=== PATIENT | female | born 1985 | race Caucasian/White ===

== ENCOUNTER → 2016-07-12 | Outpatient (CLI) | payer BC ==
[2016-07-12 12:42] LABS: URINE APPEARANCE CLEAR (CLEAR); URINE BILIRUBIN NEG (NEG); URINE COLOR YELLOW; URINE NITRITE NEG (NEG); URINE PH 5.5 (4.5-7.5); URINE SPECIFIC GRAVITY 1.003 (1.000-1.030); UROBILINOGEN NEG (NEG)
[2016-07-12 12:51] LABS: MANUAL MICROSCOPIC REQUIRED? NO; REVIEW REQ? NO
== END | disposition home or self-care (01) ==
LOC: C.LAB1850 11:28
PROVIDERS: ATTEND Obstetrics & Gynecology
DX: R39.9 Unspecified symptoms and signs involving the genitourinary system (principal)

== ENCOUNTER → 2016-11-20 | Outpatient (CLI) | payer BC ==
[2016-11-20 13:16] LABS: HEMATOCRIT 40.6 % (37-47); MEAN CELL VOLUME 93.5 fL (80-100); MEAN CORPUSCULAR HEMOGLOBIN 31.8 pg (25-34); MEAN PLATELET VOLUME 10.9 fL (7.4-10.4); PLATELET COUNT 189 K/uL (130-400); RED BLOOD COUNT 4.34 M/uL (4.2-5.4); WHITE BLOOD COUNT 7.75 K/uL (4.8-10.8)
[2016-11-20 13:35] LABS: ALT/SGPT 20 U/L (12-78); BLOOD UREA NITROGEN 10 mg/dl (7-18); BUN/CREATININE RATIO 12.7 (10-20); CARBON DIOXIDE 23 mmol/L (21-32); CHLORIDE 108 mmol/L (98-107); CHOLESTEROL 178 mg/dl (0-200); CREATININE 0.82 mg/dl (0.60-1.20); GLUCOSE 80 mg/dl (70-99); MAGNESIUM 2.1 mg/dl (1.8-2.4); POTASSIUM 3.7 mmol/L (3.5-5.1); SODIUM 142 mmol/L (136-145); TRIGLYCERIDES 159 mg/dl (0-150); VERY LOW DENSITY LIPOPROT CALC 32 mg/dl
[2016-11-20 13:38] LABS: CALCIUM 8.8 mg/dl (8.5-10.1)
[2016-11-20 13:44] LABS: ALKALINE PHOSPHATASE 51 U/L (45-117); AST/SGOT 13 U/L (15-37); CHOLESTEROL/HDL RATIO 3.8; HDL CHOLESTEROL 47 mg/dl; LDL CHOLESTEROL CALCULATED 99 mg/dl
== END | disposition home or self-care (01) ==
LOC: C.LABBC 11:38
PROVIDERS: ATTEND Nurse Practitioner Adult Health
DX: E78.5 Hyperlipidemia, unspecified (principal); R00.2 Palpitations

== ENCOUNTER 2018-10-06 08:26 | Inpatient (IN) ==
[2018-10-06] MEDS ORDERED: LACTATED RINGER'S 1,000 ML IV PRN (08:35)
[2018-10-06] MEDS ORDERED: OXYTOCIN 30 UNITS/500 ML BAG IV PRN ×2 (08:35→11:07)
[2018-10-06] MEDS ORDERED: PENICILLIN G POTASSIUM 3 MU in DEXTROSE 5% 100 ML IV PRN (08:35)
[2018-10-06] MEDS ORDERED: PENICILLIN G POTASSIUM 6 MU in DEXTROSE 5% 250 ML IV STA (08:43)
[2018-10-06] MEDS ORDERED: LACTATED RINGER'S 1,000 ML IV SCH (08:45)
--- NOTE | 2018-10-06 08:49 | History & Physical Report ---
Date of Service October 06, 2018 Assessment & Plan (1) SROM (spontaneous rupture of membranes): Pt is a 33yo with SROM at 37.0 weeks. GBS + -Pitocin, fluids, Penicillin G, NPO -Anticipate History of Present Illness Chief Complaint: SROM Primary Care Provider: LIBAN Mondragon Ms. Hutchinson is a 33yo presenting with SROM at 37.0 weeks. Pt has an PA of October 27, 2018 confirmed by 1st trimester US and LMP. course unremarkable. Pt with history of palpitations with negative Holter workup, and high cholesterol. Blood type O-. Received RhoGam 08/04/18. Antibody negative, rubella immune. Hep B NEG, HIV NEG. Normal cell free DNA testing and MSAFP. NEG 1 hour glucose test x2. 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 Beliefs That Will Affect Care: None marital status: Current Living Situation: Spouse Feels Safe at Home: Yes Safety Concerns: Feels Safe At This Time Smoking Status: Never smoker Hx Alcohol Use: No Hx Substance Use: No Physical Exam Genitourinary: OB Exam Abdomen: + vertex Manual OB Exam: + cervical dilation 8 cm, + cervical effacement 90% and + station 0 Results & Data Vital Signs (Past 12 Hours) Vital Signs Pulse BP 10/06/18 08:31 100 H 129/82 Laboratory Results Laboratory Results - last 24 hr 10/06/18 08:48 WBC 13.64 H RBC 4.20 Hgb 13.9 Hct 40.1 MCV 95.5 MCH 33.1 RDW Std Deviation 49.3 H RDW Coeff of Sai 14.3 Plt Count 127 L MPV 11.3 H Medications Administered Home Medications PNV cmb#95-ferrous fumarate-FA [] 1 tab PO DAILY 10/06/18 [History Confirmed 10/06/18] Active Medications Lactated Ringer's (Lr) 1,000 mls @ 999 mls/hr IV .Q1H1M PRN PRN Reason: (Pre-Anesthesia) Stop: 11/05/18 08:34 Lactated Ringer's (Lr) 1,000 mls @ 125 mls/hr IV .Q8H BERNARDINO Stop: 10/08/18 08:44 Oxytocin (Pitocin) 30 units in 500 mls @ 333.333 mls/hr IV .Q1H30M PRN; Protocol PRN Reason: Bleeding Control Stop: 11/05/18 08:34 Penicillin G Potassium 6 mu/ (Dextrose) 262 mls @ 262 mls/hr IV NOW STA Stop: 10/06/18 09:42 Last Admin: 10/06/18 09:00 Dose: 262 mls/hr Documented by: Penicillin G Potassium 3 mu/ (Dextrose) 106 mls @ 100 mls/hr IV Q4H PRN PRN Reason: Give until delivery Stop: 10/16/18 08:34 Supervising Physician Co-Signing Physician Notes Resident Physician Supervision Note: I interviewed and examined the patient. Discussed with Dr. Mara Lamar MD and agree with findings and plan as documented in the note. Any exceptions or clarifications are listed here: [None] Documented By: Halle Conway MD, FACOG
[2018-10-06 08:55] LABS: Hematocrit (blood only) 40.1 % (37-47); Hemoglobin 13.9 g/dL (12.0-16.0); Mean Corpuscular Volume 95.5 fL (80-100); Mean Platelet Volume 11.3 fL (7.4-10.4); Platelet Count 127 K/uL (130-400); RDW Coefficient of Variation 14.3 % (11.5-14.5); RDW Standard Deviation 49.3 fL (36.4-46.3); White Blood Count 13.64 K/uL (4.8-10.8)
[2018-10-06 09:29] LABS: Mean Corpuscular Hgb Conc 34.7 g/dL (32-36)
[2018-10-06] MEDS ORDERED: BENZOCAINE 20% AER SPR 82.5 GM CAN EXT PRN (11:07)
[2018-10-06] MEDS ORDERED: ACETAMINOPHEN 325 MG TAB PO PRN (11:07)
[2018-10-06] MEDS ORDERED: DIPHTHERIA/TETANUS/PERTUSSIS 0.5 ML SYR/VIAL IM ONE (11:07)
[2018-10-06] MEDS ORDERED: HYDROCORTISONE ACETATE 25 MG SUPP PR PRN (11:07)
[2018-10-06] MEDS ORDERED: BISACODYL 10 MG SUPP PR PRN (11:07)
[2018-10-06] MEDS ORDERED: SUPERCREAM 0.870% 15 GM JAR EXT PRN (11:07)
[2018-10-06] MEDS ORDERED: OXYCODONE/ACETAMINOPHEN 5mg/325mg TAB PO PRN (11:07)
--- NOTE | 2018-10-06 15:25 | Delivery Summary ---
DATE OF OPERATION: 10/06/2018 The patient is a 33-year-old 2, para 0 who presented with spontaneous rupture of membranes of clear fluid at approximately 0500 hours this morning. She presented to labor and delivery at 8 cm dilated with grossly ruptured membranes for clear fluid. She requested an unmedicated . She progressed to full dilation and in the knee-chest position, delivered the vertex over an intact perineum. A loose nuchal cord was reduced prior to delivering the rest of the . The shoulders were delivered, the anterior shoulder first and then the posterior shoulder. Rest of the was delivered easily and after waiting 30 seconds after cord had stopped pulsing, the cord was clamped and cut. The mother was then placed in the semi-Alvarez position and the was placed on her chest for further drying and attention. The placenta was then expressed intact with a 3-vessel cord. A first-degree right labial laceration was bleeding and after injecting the area with 1% lidocaine, the defect was closed in the usual fashion with 3-0 chromic. There was a small abrasion on the left labia that was not bleeding, was not repaired. Estimated blood loss was 250 mL. Mother and infant were doing well after delivery. I attest to the content of the Intraoperative Record and any orders documented therein. Any exception s are noted below.
[2018-10-06] MEDS: DOCUSATE SODIUM 100 MG CAP PO SCH (20:52)
[2018-10-06] MEDS: IBUPROFEN 600 MG TAB PO PRN (23:14)
[2018-10-07 06:52] LABS: Hemoglobin 12.9 g/dL (12.0-16.0); Mean Corpuscular Hgb Conc 33.9 g/dL (32-36); Mean Corpuscular Volume 95.5 fL (80-100); Mean Platelet Volume 11.2 fL (7.4-10.4); Platelet Count 137 K/uL (130-400); RDW Coefficient of Variation 14.3 % (11.5-14.5); RDW Standard Deviation 49.5 fL (36.4-46.3); Red Blood Count 3.98 M/uL (4.2-5.4); White Blood Count 15.09 K/uL (4.8-10.8)
--- NOTE | 2018-10-07 08:00 | Obstetrical Progress Note ---
Date of Service October 07, 2018 day #1 from vaginal delivery the patient is doing well ambulating tolerating oral diet she has no extremity pain minimal bleeding questions Assessment & Plan (1) SROM (spontaneous rupture of membranes): Continue current care Physical Exam Vital Signs (Past 24 Hours) Last Vital Signs Temp 98.2 F 10/07/18 07:30 Pulse 89 10/07/18 07:30 Resp 18 10/07/18 07:30 BP 98/59 L 10/07/18 07:30 Pulse Ox 97 10/06/18 15:15 Vital signs are stable she is afebrile abdomen is soft nontender extremity exam negative
[2018-10-07] MEDS: IBUPROFEN 600 MG TAB PO PRN ×2 (09:05→19:29)
[2018-10-07] MEDS: PRENATAL VITAMIN 1 TAB PO SCH (09:07)
[2018-10-07] MEDS: DOCUSATE SODIUM 100 MG CAP PO SCH ×2 (09:07→19:30)
[2018-10-07] MEDS ORDERED: BISACODYL 5 MG TABEC PO SCH (20:00)
[2018-10-08] MEDS: IBUPROFEN 600 MG TAB PO PRN ×4 (00:02→13:00)
[2018-10-08 07:22] LABS: Hematocrit (blood only) 36.3 % (37-47); Hemoglobin 11.9 g/dL (12.0-16.0)
--- NOTE | 2018-10-08 08:00 | Obstetrical Progress Note ---
Date of Service October 08, 2018 Assessment & Plan (1) care following vaginal delivery: stable continue to work on latch & positions discharge to home follow up in 6 weeks. Present on Admission?: No Day #:: 2 Subjective Ambulation: ambulating normally Voiding: no voiding problems Passing Gas:: Yes Diet Tolerance:: regular diet Lochia:: Small Feeding Type:: breast feeding Current Pain Level(1-10): 1 (nipple pain with nursing) Review of Systems All systems reviewed & are unremarkable except as noted in HPI & below Physical Exam Vital Signs (Past 24 Hours) Last Vital Signs Temp 97.7 F 10/07/18 23:30 Pulse 83 10/07/18 23:30 Resp 20 10/07/18 23:30 BP 118/82 10/07/18 19:35 Pulse Ox 96 10/07/18 23:30 Constitutional WD/WN, vitals as above Gastrointestinal (Abdomen) Inspection/Auscultation: abdomen normal to inspection Musculoskeletal no calf tendereness Genitourinary OB Exam Abdomen: + fundal height Fundus: + firm and + relation to umbilicus (3 below U)
[2018-10-08] MEDS: PRENATAL VITAMIN 1 TAB PO SCH (08:41)
[2018-10-08] MEDS: DOCUSATE SODIUM 100 MG CAP PO SCH (08:41)
--- OUTSIDE RECORDS SUMMARY | 2018-10-09 21:54 | External Medical Summary | Continuity of Care Document ---
:1985 Author Name Saul Kothari, Provider Address Unavailable Unavailable , Care Team Providers Name Role Phone Rebeka Headley [email or web address] Janelle Sol Unavailable Unavailable Unavailable Unavailable Unavailable Problems Anxiety (300.00) (F41.9) Hyperlipidemia (272.4) (E78.5) Need for rhogam due to Rh negative mother (V07.2) (Z29.13) Encounter for antepartum consultation regarding (V 65.49) (Z71.89) Supervision of normal first in third trimester (V2 2.0) (Z34.03) GBS (group B Streptococcus carrier), +RV culture, currently (V23.89) (O99.820) Allergies and Adverse Reactions No Known Drug Allergies (Allergy) Medications TABS Refills: 0 Procedures History of Oral Surgery Tooth Extraction Status: Completed Immunizations Fluzone Quadrivalent 0.5 ML Intramuscular Suspension P refilled Syringe On: 13-Mar-2018 10:28 Lot #: [id number], SANOFI PASTEUR Tdap (Adacel) On: 28-Jul-2018 15:24 Lot #: [id number], SANOFI PASTEUR Family History natural daughter Family history of Dyslipidemia (272.4) (E78.5) Status: Activ e Grandmother Family history of Dyslipidemia (272.4) (E78.5) Status: Activ e Family history of hypertension (V17.49) (Z82.49) Status: Act heydi Family history of Twins (V27.9) (Z38.5) Status: Active Father Family history of hypertension (V17.49) (Z82.49) Status: Act heydi Mother Family history of depression (V17.0) (Z81.8) Status: Active Family history of anxiety disorder (V17.0) (Z81.8) Status: A ctive Grandmother Family history of ovarian cancer (V16.41) (Z80.41) Status: A ctive Grandfather Family history of colon cancer (V16.0) (Z80.0) Status: Activ e Social History - Smoking Status Never smoker Never smoker Plan of Treatment Planned Encounters Appointment; Rebeka Headley M.D. Start: 18-May-2019 14:20 Req uest Planned Observations Planned Goals not documented Results Group B Strep/ALEXANDRE 29-Sep-2018 18:04 GRP B BETA STREP CULTURE - ALEXANDRE ORDERED P ROCEDURE : GRP B Beta Strep Culture -ALEXANDRE; Speciment : V aginal/Rectal Source of Specimen: Vaginal/ Rectal Group B St rep Culture : Group B Beta Strep GROUP B BETA STREP\S\Group B Beta Strep Posit heydi for Group B Beta Strep S\S\Sens No Sensitivities to Follow Vital Signs 29-Sep-2018 15:59 Systolic 118 mm[Hg] Diastolic 76 mm[Hg] Weight 149.2 lb Height 67.5 in BMI Calculated 23.02 kg/m2 BSA Calculated 1.79 m2 14-Sep-2018 13:58 Systolic 126 mm[Hg] Diastolic 74 mm[Hg] Weight 145.6 lb Height 67.5 in BMI Calculated 22.47 kg/m2 BSA Calculated 1.78 m2 Encounters Appointment; Katharine Christianson DO 29-Sep-2018 15:20 Encounter Diagnosis: Problem not documented Appointment; Bereket Le M.D. 14-Sep-2018 13:50 Encounter Diagnosis: Problem not documented Appointment; Jarocho Segovia M.D. 01-Sep-2018 15:50 Encounter Diagnosis: Problem not documented Appointment; Roslyn Conley M.D. 18-Aug-2018 14:30 Encounter Diagnosis: Problem not documented Appointment; Kae Dixon M.D. 28-Jul-2018 15:10 Encounter Diagnosis: Problem not documented Appointment; Katharine Christianson DO 30-Jun-2018 13:30 Encounter Diagnosis: Problem not documented Appointment; Stephen Batista M.D. 02-Jun-2018 13:20 Encounter Diagnosis: Problem not documented Appointment; CHRISTINE SC2, Ultrasound 02-Jun-2018 12:30 Encounter Diagnosis: Problem not documented Appointment; Anna Chamberlain CRNP 09-May-2018 8:40 Encounter Diagnosis: Problem not documented Appointment; Roslyn Conley M.D. 08-May-2018 14:00 Encounter Diagnosis: Problem not documented Appointment; Gonzalez Perez DO 17-Apr-2018 16:20 Encounter Diagnosis: Problem not documented Appointment; Stephen Batista M.D. 10-Apr-2018 14:30 Encounter Diagnosis: Problem not documented Appointment; OB SC1, Procedure Rm 13-Mar-2018 9:50 Encounter Diagnosis: Problem not documented Appointment; Roslyn Conley M.D. 13-Mar-2018 9:50 Encounter Diagnosis: Problem not documented Appointment; OB SC1, Nursing Station 10-Mar-2018 10:45 Encounter Diagnosis: Problem not documented Appointment; Janet Barton M.D. 16-Feb-2018 8:00 Encounter Diagnosis: Problem not documented Appointment; Cristina Araujo PA-C 16-May-2017 14:40 Encounter Diagnosis: Problem not documented Appointment; Roslyn Conley M.D. 11-Mar-2017 8:45 Encounter Diagnosis: Problem not documented Appointment; Rebeka Headley M.D. 18-May-2019 14:20 Encounter Diagnosis: Problem not documented
== END 2018-10-08 17:40 | disposition home or self-care (01) | DRG 807 ==
LOC: OPB 08:26 → 4S1 08:27 → 4S2 14:15

== ENCOUNTER 2021-03-17 02:28 | Inpatient (IN) ==
[2021-03-17] MEDS ORDERED: OXYTOCIN 30 UNITS/500 ML BAG IV PRN ×2 (03:14→06:24)
[2021-03-17] MEDS ORDERED: LACTATED RINGER'S 1,000 ML IV PRN (03:14)
[2021-03-17] MEDS ORDERED: PENICILLIN G POTASSIUM 6 MU in DEXTROSE 5% 250 ML IV STA (03:14)
--- NOTE | 2021-03-17 03:39 | History & Physical Report ---
Date of Service March 17, 2021 Assessment & Plan (1) Encounter for supervision of normal in multigravida, antepartum: Plan: In labor, admit to L&D. EFM/toco, IV, labs, COVID swab per protocol. Reviewed plan with patient. Penicillin for GBS+. History of Present Illness Chief Complaint: labor Primary Care Provider: Rebeka Headley MD 35yo @ 38 0/7, spontaneous rupture of clear fluid, reg ctx. + movement, no vaginal bleeding. complicated by Rh negative (rec'd Rhogam), GBS positive. Allergies Allergy/AdvReac Type Severity Reaction Status Date / Time No Known Drug Allergies Allergy Verified 03/12/21 10:25 Home Medications Medication Instructions Recorded Confirmed Type prenat.vits,maximo,izz-qyxz-dirgt 1 tab PO DAILY 08/13/20 03/12/21 History Patient History Medical History Anxiety no current meds Supervision of normal first in third trimester Surgical History [place] teeth removed Family History Grandfather (Maternal) Colorectal cancer Grandmother (Maternal) Ovarian cancer Denies family history of Prostate cancer Myocardial infarction Breast cancer Social History Smoking Status: Never smoker Second Hand Exposure: No; Do You Dip or Chew Tobacco: No; Tobacco Cessation Education Requested by Patient: No Hx Alcohol Use: No Hx Substance Use: No Preferred Language: Azeri Communication Ability: Effective Visual Impairment: No Limitations Hearing Ability: Normal Garage Door Hanger Required: No Beliefs That Will Affect Care: None marital status: marital status details: Shiv [phone] Current Living Situation: Spouse and Family Current Living Situation Comment: Lives with and daughter current occupational status: employed current occupation: professor at [employer] Other Information That Helps Us Care for You: No Feels Safe at Home: Yes Safety Concerns: Feels Safe At This Time Childhood Exposure to Second-Hand Smoke: No Dental Care, Regularly: Yes Physical Activity Frequency: 1-2 Times per Week Seatbelt Use: always Sunscreen Use: Yes Assistive Devices: None Review of Systems All systems reviewed & are unremarkable except as noted in HPI & below Physical Exam Constitutional: WD/WN, vitals as above Respiratory: normal respiratory effort, lungs clear to auscultation no respiratory distress Cardiovascular: Rate/Rhythm: regular rate and regular rhythm Gastrointestinal (Abdomen): Inspection/Auscultation: abdomen normal to inspection Percussion/Palpation: abdomen soft; abdomen nontender Gravid. No s/s chorio or abruption. Skin: no rashes, warm and dry Psychiatric: A+Ox3, euthymic affect Results & Data ([facility]) Vital Signs (Past 12 Hours) Vital Signs Pulse Resp BP 03/17/21 02:50 83 139/87 03/17/21 02:48 83 18 139/87 Monitoring External Monitor FHT cat 1 [place] Q 2 SVE 5cm per RN Coding Level of Care Code None Diagnoses Encounter for supervision of normal in multigravida, antepartum Z34.80
[2021-03-17 03:47] LABS: Hematocrit (blood only) 38.2 % (37-47); Hemoglobin 12.6 g/dL (12.0-16.0); Mean Corpuscular Hemoglobin 31.4 pg (25-34); Mean Corpuscular Volume 95.3 fL (80-100); Mean Platelet Volume 11.2 fL (7.4-10.4); Platelet Count 149 K/uL (130-400); RDW Coefficient of Variation 14.8 % (11.5-14.5); RDW Standard Deviation 51.5 fL (36.4-46.3); Red Blood Count 4.01 M/uL (4.2-5.4); White Blood Count 10.99 K/uL (4.8-10.8)
--- NOTE | 2021-03-17 05:57 | Delivery Summary ---
Vaginal Delivery Summary Date of Service March 17, [address] [facility] Vaginal Delivery Summary: Pre-delivery diagnoses: 35yo @ 38 0/7, spontaneous labor, GBS+, Rh neg Post-delivery diagnoses: same Procedure: spontaneous vaginal delivery Surgeon: Katharine Christianson DO Complications: none Findings: Viable female . Apgars: 9 at 5 minutes. Weight pending, please see nursery records. Estimated blood loss: 200ml Description of delivery: The patient had progressed to complete without anesthesia and began to feel sudden urge to push while in the bathroom, then was brought over to the bed, and felt the baby begin to deliver while standing on the side of the bed. This all happened quickly - and nursing staff called me to bedside, and I immediately responded, and baby was already delivered at the time I entered the room. Patient was standing at the side of the bed, baby was behind her, and RN was clamping and cutting the umbilical cord. Baby was crying and vigorous. The patient was then maneuvered into the bed. Cord blood was o btained. The placenta was delivered spontaneously intact with a 3-vessel cord. The uterus and vagina were swept of clots and debris. IV pitocin was given. The uterus became firm. The cervix, vagina, and perineum were inspected and no lacerations were noted. Excellent hemostasis was observed. The mother and baby are recovering in stable and good condition in the room. Sponge and instrument counts were correct x 2. Katharine Christianson DO [facility] Vaginal Delivery Charge Vaginal Delivery Codes: 98496 global code for the antepartum, delivery, and post- Delivery Type Details: [facility]
[2021-03-17] MEDS ORDERED: PENICILLIN G POTASSIUM 3 MU in DEXTROSE 5% 100 ML IV PRN (06:14)
[2021-03-17] MEDS ORDERED: IBUPROFEN 600 MG TAB PO ONE (06:16)
[2021-03-17] MEDS ORDERED: oxyCODONE/ACETAMINOPHEN 5mg/325mg TAB PO PRN (06:24)
[2021-03-17] MEDS ORDERED: bisacodyL 10 MG SUPP PR PRN (06:24)
[2021-03-17] MEDS ORDERED: BENZOCAINE 20% AER SPR 82.5 GM CAN EXT PRN (06:24)
[2021-03-17] MEDS ORDERED: HYDROCORTISONE ACETATE 25 MG SUPP PR PRN (06:24)
[2021-03-17] MEDS ORDERED: DIPHTHERIA/TETANUS/PERTUSSIS 0.5 ML SYR/VIAL IM ONE (06:24)
[2021-03-17] MEDS ORDERED: SUPERCREAM 0.870% 15 GM JAR EXT PRN (06:24)
[2021-03-17] MEDS: PRENATAL VITAMIN 1 TAB PO SCH (08:54)
[2021-03-17] MEDS: DOCUSATE SODIUM 100 MG CAP PO SCH ×2 (08:54→21:46)
[2021-03-17] MEDS: IBUPROFEN 600 MG TAB PO PRN ×3 (10:33→19:17)
[2021-03-17] MEDS: ACETAMINOPHEN 325 MG TAB PO PRN ×2 (15:36→21:45)
[2021-03-18] MEDS: IBUPROFEN 600 MG TAB PO PRN ×5 (00:02→16:46)
[2021-03-18] MEDS: ACETAMINOPHEN 325 MG TAB PO PRN (04:17)
[2021-03-18 06:05] LABS: Hematocrit (blood only) 36.3 % (37-47)
--- NOTE | 2021-03-18 07:35 | Obstetrical Progress Note ---
Date of Service <James Todd DO - Last Filed: 03/18/21 07:35> March 18, 2021 Assessment & Plan <James Todd DO - Last Filed: 03/18/21 07:35> (1) Encounter for care and examination after delivery: 35 yo PPD 1 s/p at 38 weeks -Continue routine care; keep additional 24 hours. -Vitals reviewed- HDS, afebrile. Watch pressures as there have been a few readings >130/90 with no Hx of htn. -O-, GBS+, Rubella immune. Rhogam given 03/17. Penicillin was unable to be given during labor due to rapid progression and delivery. -Encouraged ambulation, regular diet -Pain control with ibuprofen, acetaminophen PRN -Encouraged . Pt reports frequent feeding. <Jarocho Segovia MD - Last Filed: 03/18/21 08:12> (1) Encounter for care and examination after delivery: Subjective <James Todd DO - Last Filed: 03/18/21 07:35> Ambulation: ambulating normally Voiding: no voiding problems Passing Gas:: Yes Diet Tolerance:: regular diet Lochia:: Small Feeding Type:: breast feeding Current Pain Level(1-10): 0 PPD 1 s/p . Patient seen and examined at bedside. Reports no acute overnight events. Some intermittent cramping that is improved with ibuprofen. Review of Systems All systems reviewed & are unremarkable except as noted in HPI & below Physical Exam <James Todd DO - Last Filed: 03/18/21 07:35> General: Alert, oriented, no acute distress Cardiac: Regular rate and rhythm, normal S1, S2. No murmurs appreciated. Respiratory: Clear to auscultation b/l with good air flow entry, symmetric chest rise and fall. No wheezes or crackles. No increased work of breathing or accessory muscle use Abdomen: Soft, nontender, nondistended. Fundus firm and palpable at 2 cm below umbilicus. No guarding or rebound. Skin: No rashes or lesions Extremities: Warm, dry, well-perfused with capillary refill <2s b/l. No lower extremity edema, erythema or swelling. Negative Pallavi's sign b/l. Results & Data ([facility]) <DO Sheldon Olvera Last Filed: 03/18/21 07:35> Vital Signs (Past 12 Hours) Vital Signs Temp Pulse Resp BP Pulse Ox 03/18/21 04:18 135/95 03/18/21 03:03 36.6 C 86 20 97 03/17/21 23:45 36.5 C 76 16 118/77 96 03/17/21 21:46 135/85 <Jarocho Segovia MD - Last Filed: 03/18/21 08:12> Co-Signing Physician Notes Patient seen and evaluated and agree with the above findings and plan.
[2021-03-18] MEDS: PRENATAL VITAMIN 1 TAB PO SCH (08:32)
[2021-03-18] MEDS: DOCUSATE SODIUM 100 MG CAP PO SCH (08:32)
[2021-03-18] MEDS ORDERED: bisacodyL 5 MG TABEC PO SCH (20:00)
== END 2021-03-18 17:55 | disposition home or self-care (01) | DRG 807 ==
LOC: OPB 02:28 → 4S1 02:29 → 4S2 08:34